=== PATIENT | male | born 1995 | race Two or more races ===

== ENCOUNTER 2016-10-31 14:04 | Emergency (ER) | payer SELFPAY ==
[~2016-10-31] VITALS: Ht 177.8 cm; Wt 94.4 kg
[2016-10-31 14:11] VITALS: BP 129/76; PULSE 68; RESP 16; TEMP 98.2; O2SAT 100
[2016-10-31] MEDS ORDERED: PENI250T59 PO (14:53)
[2016-10-31] MEDS ORDERED: TRAM50TA PO (15:00)
--- NOTE | 2016-10-31 15:00 | PD ---
HPI Chief Complaint: Oral / Dental Pain or Problem Time Seen by Provider: 14:53 Travel History International Travel<30 days: No Contact w/Intl Traveler<30days: No Traveled to known affect area: No History of Present Illness HPI 21-year-old female presents to the emergency room for evaluation for the past 2 days. Patient states his right lower tooth started hurting. He has poor dentition and knows that he needs to visit a dentist but has had the ability to do so. He isn't in school and states the pain has prevented him from concentrating. He is taking 800 mg ibuprofen without any relief in symptoms. Patient denies fever, chills, nausea, vomiting, and drainage. He called a local dentist and could not get in for another 7 days. PFSH Past Medical History Medical History: Denies Significant Hx Diminished Hearing: No Tetanus Vaccination: < 5 Years Past Surgical History Surgical History: No Previous Surgery Social History Alcohol Use: No Tobacco Use: No Substance Use: No Allergies-Medications (Allergen,Severity, Reaction): Coded Allergies: No Known Allergies (Unverified , 10/31/16) Reported Meds & Prescriptions Reported Meds & Active Scripts Active Tramadol (Tramadol HCl) 50 Mg Tab 50 Mg PO Q6H PRN Penicillin Vk (Penicillin V Potassium) 250 Mg Tab 500 Mg PO Q6H 7 Days Review of Systems Except as stated in HPI: all other systems reviewed are Neg Physical Exam Narrative GENERAL: Well-nourished, well-developed male in no acute distress. Afebrile. Ambulatory. SKIN: Focused skin assessment warm/dry. HEAD: Normocephalic. EYES: No scleral icterus. No injection or drainage. DENTAL: Poor dentition overall. No chipped teeth. No malocclusion. Teeth #29 and 30 are broken down to the root with large caries. The area around the cavities is macerated. There is no drainage. No submental, submandibular, or buccal induration. NECK: Supple, trachea midline. No JVD or lymphadenopathy. CARDIOVASCULAR: Regular rate and rhythm without murmurs, gallops, or rubs. RESPIRATORY: Breath sounds equal bilaterally. No accessory muscle use. Data Data Last Documented VS Vital Signs Date Time Temp Pulse Resp B/P Pulse Ox O2 Delivery O2 Flow Rate FiO2 10/31/16 14:11 98.2 68 16 129/76 100 MDM Medical Decision Making Medical Screen Exam Complete: Yes Emergency Medical Condition: Yes Medical Record Reviewed: Yes Differential Diagnosis Gingivitis versus dental abscess versus dentalgia Narrative Course 21-year-old male presents to the emergency room for evaluation of right lower tooth pain for the past 2 days. Physical exam reveals tooth #29 and 30 are large cavities. The area around the teeth is inflamed, likely dental abscess. No spontaneous drainage or obvious abscess to drain. No evidence of Pal. Patient will be given penicillin and tramadol and told to follow-up with a primary care physician and return for worsening symptoms. He understands and agrees to plan. Diagnosis Primary Impression: Dental abscess Referrals: Primary Care Physician Patient Instructions: Dental Abscess (ED), General Instructions Additional Instructions: Rest and drink plenty of fluids. Penicillin as directed, until gone. Tramadol as directed, as needed for pain. Do not drink alcohol or drive while taking this medication. Follow-up with a dentist. Return to the emergency room for worsening symptoms. Scripts Tramadol 50 Mg Tab50 Mg PO Q6H PRN (PAIN) #7 TAB Ref 0 Prov:Nain Oneal MD 10/31/16 Penicillin V Potassium (Penicillin Vk)250 Mg [id number] Mg PO Q6H 7 Days Ref 0 Prov:Nain Oneal MD 10/31/16 Disposition: 01 DISCHARGE HOME Condition: Stable Angeline Hull Oct 31, 2016 14:59 Angeline Hull Oct 31, 2016 14:59
== END 2016-10-31 15:06 | disposition home or self-care (01) ==
LOC: PHEFT 14:04
DX: K04.7 Periapical abscess without sinus (principal)
CPT/HCPCS: 99284